=== PATIENT | male | born 1970 ===

== ENCOUNTER → 2018-10-28 | Outpatient (CLI) | payer SELFPAY ==
[~2018-10-28] MED LIST: ESOM20; HYDACE5 PO; IBUP600 PO; PARO25
== END | disposition home or self-care (01) ==
LOC: LAB EV 11:48 → LAB SHORT 11:48
DX: L08.9 Local infection of the skin and subcutaneous tissue, unspecified (principal)
CPT/HCPCS: 87070; 87077; 87147; 87186; 87205

== ENCOUNTER → 2018-10-29 | Outpatient (CLI) | payer SELFPAY | END | disposition home or self-care (01) | LOC: LAB SHORT 11:40 → LAB EV 11:40 | DX: L08.9 Local infection of the skin and subcutaneous tissue, unspecified (principal) | CPT/HCPCS: 87070; 87075; 87147; 87205 ==